=== PATIENT | male | born 1980 | race Caucasian/White ===

== ENCOUNTER 2017-04-04 06:27 | Emergency (ER) | payer OTHER ==
[~2017-04-04] VITALS: Ht 175.3 cm; Wt 97.0 kg
[2017-04-04 06:30] VITALS: Ht 175.3 cm; Wt 97.0 kg
[2017-04-04] MEDS ORDERED: HYDROCODONE/APAP (5/325) TAB PO ONE (07:30)
--- NOTE | 2017-04-04 07:50 | RADRPT ---
PROCEDURE: CHEST RADIOGRAPH CLINICAL INDICATION: Dyspnea. TECHNIQUE: Single frontal view of the chest were obtained. COMPARISON: None. FINDINGS: There is no consolidation or pleural effusion. There is no pneumothorax. The cardiomediastinal stru ctures unremarkable. The visualized bony structures are unremarkable. IMPRESSION: Unremarkable single-view chest radiograph. RPTAT: HMZ .Terrance Meng MD, MD Date Time Electronically viewed and signed by .Terrance Meng MD, on 04/04/2017 07:50 .Z/
--- NOTE | 2017-04-04 07:51 | RADRPT ---
PROCEDURE: XR right shoulder. CLINICAL INDICATION: Pain. TECHNIQUE: AP Internal and external rotation views of the right shoulder were performed. COMPARISON: None. FINDINGS: There is normal osseous mineralization and alignment. No acute fracture or osseous lesion is identified. There are normal joints without evidence of arthritis or dislocation. Rounded soft tissue densities are present within the axillary region. Correlate for possible enlarge d lymph nodes. IMPRESSION: 1. No acute fracture, dislocation, or degenerative change. 2. Soft rounded soft tissue densities within the axillary region. Correlate for pathologically enla rged lymphadenopathy. RPTAT: HRSR Physician Tiara Date Time Electronically viewed and signed by Physician Tiara on 04/04/2017 07:50 RR/
[2017-04-04] MEDS ORDERED: HYDR-906 PO (08:21)
[2017-04-04] MEDS ORDERED: NAPR-260 PO (08:21)
[2017-04-04] MEDS ORDERED: BACL10TA PO (08:22)
--- NOTE | 2017-04-04 23:15 | ERD ---
ER Documentation Chief Complaint Chief Complaint rt shoulder pain x 5 days , no trauma HPI Patient is a 36-year-old male with no past medical history presents to the ED with concerns of right shoulder and scapula pain 5 days. Patient denies any trauma or falls. Patient denies any heavy lifting. Patient reports trying heat pads, ointments, ibuprofen with no alleviation of symptoms. Patient denies any fevers or chills. Patient denies any chest pain, shortness breath, abdominal pain, nausea, vomiting, left upper extremity pain, diaphoresis or LOC. Patient denies any back pain or neck pain. Patient states that his pain is worse when taking a deep inspiration or coughing. No recent travel. No sick contacts Patient works at [employer]. Patient does admit to having flulike symptoms approximately 2 having symptoms have improved significantly. ROS All systems reviewed and are negative except as per history of present illness. Medications Home Meds Active Scripts Baclofen* (Baclofen*) 10 Mg Tablet, 10 MG PO Q8, #15 TAB Prov:RITA LEVI PA-C 04/04/17 Hydrocodone/Acetaminophen ([place] 5-325 Tablet) 1 Each Tablet, 1 TAB PO Q6H Y for PAIN, #7 TAB Prov:RITA LEVI PA-C 04/04/17 Naproxen* (Naprosyn*) 500 Mg Tablet, 500 MG PO BID Y for PAIN AND/OR INFLAMMATION, #30 TAB Prov:RITA LEVI PA-C 04/04/17 Allergies Allergies: Coded Allergies: No Known Drug Allergies (Verified Allergy, Unknown, 04/04/17) PMhx/Soc Medical and Surgical Hx: pt denies Medical Hx, pt denies Surgical Hx Physical Exam Vitals Vital Signs Date Time Temp Pulse Resp B/P Pulse Ox O2 Delivery O2 Flow Rate FiO2 04/04/17 06:30 97.8 68 18 126/82 98 Physical Exam GENERAL: Well-developed, well-nourished male. Appears in no acute distress. Speaking in full sentences HEAD: Normocephalic, atraumatic. EYES: Pupils are equally reactive bilaterally. EOMs grossly intact. No conjunctival erythema. ENT: Moist mucous membranes. No uvula deviation. No kissing tonsils. NECK: Supple. No meningismus. Normal range of motion of the neck. Tender to palpation of the right trapezius muscle, pain ranges from the upper neck region down to the right scapula. Pain is reproducible with palpation. Muscle tightness and spasms noted. LUNG: Clear to auscultation bilaterally. No rhonchi, wheezing, rales or coarse breath sounds. HEART: Regular rate and rhythm. No murmurs, rubs or gallops. BACK: No midline tenderness. EXTREMITIES: Equal pulses bilaterally. No peripheral clubbing, cyanosis or edema. No unilateral leg swelling. NEUROLOGIC: Alert and oriented. Moving all four extremities without any difficulty. Normal speech. Steady gait. SKIN: Normal color. Warm and dry. No rashes or lesions. Upon receiving chest x-ray results, repeat exam was performed. Patient had no tenderness in the right axilla. Less than 1 cm circular, round, movable lymph nodes were noted. No erythema, no warmth, no swelling. Results 24 hrs Current Medications Medications (Trade) Dose Ordered Sig/Leopoldo Route PRN Reason Start Time Stop Time Status Last Admin Dose Admin Acetaminophen/ Hydrocodone Bitart ([place] (5/325)) 1 tab ONCE ONCE PO 04/04/17 07:30 04/04/17 07:31 DC 04/04/17 07:19 Procedures/MDM ED COURSE: The patient was stable throughout ED course. I kept the patient and/or family informed of laboratory and diagnostic imaging results throughout the ED course. DIAGNOSTIC IMAGING: Read by radiologist. DIAGNOSTIC IMAGING REPORT Patient: OPAL NORRIS : 1980 Age: 36 Sex: M MR #: [id number] DOS: 04/04/17 0000 Ordering MD: RITA LEIV PA-C Location: [facility] Room/Bed: PROCEDURE: CHEST RADIOGRAPH CLINICAL INDICATION: Dyspnea. TECHNIQUE: Single frontal view of the chest were obtained. COMPARISON: None. FINDINGS: There is no consolidation or pleural effusion. There is no pneumothorax. The cardiomediastinal structures unremarkable. The visualized bony structures are unremarkable. IMPRESSION: Unremarkable single-view chest radiograph. RPTAT: HMZ .Terrance Meng MD, Date Time Electronically viewed and signed by .Terrance Meng MD, on 04/04/2017 07:50 .Z/ CC: RITA LEVI PA-C DIAGNOSTIC IMAGING REPORT Patient: OPAL NORRIS : 1980 Age: 36 Sex: M MR #: [id number] DOS: 04/04/17 0714 Ordering MD: RITA LEVI PA-C Location: [facility] Room/Bed: PROCEDURE: XR right shoulder. CLINICAL INDICATION: Pain. TECHNIQUE: AP Internal and external rotation views of the right shoulder were performed. COMPARISON: None. FINDINGS: There is normal osseous mineralization and alignment. No acute fracture or osseous lesion is identified. There are normal joints without evidence of arthritis or dislocation. Rounded soft tissue densities are present within the axillary region. Correlate for possible enlarged lymph nodes. IMPRESSION: 1. No acute fracture, dislocation, or degenerative change. 2. Soft rounded soft tissue densities within the axillary region. Correlate for pathologically enlarged lymphadenopathy. RPTAT: HRSR Physician Tiara Date Time Electronically viewed and signed by Physician Tiara on 04/04/2017 07 :50 RR/ MEDICATIONS GIVEN: [place] Patient tolerated medication well with no adverse reactions. Patient reported improvement in pain. MEDICAL DECISION MAKING: This is a 36-year-old male who presents ED for concerns of right posterior shoulder pain times several days. Patient denies trauma or falls. Patient denies any heavy lifting. Patient denies any fever or chills. Patient did admit to the pain being worse with deep inspiration or when coughing. Vital signs were reviewed. Patient is afebrile. Patient is not hypoxic. Right shoulder series showed 1. No acute fracture, dislocation, or degenerative change. 2. Soft rounded soft tissue densities within the axillary region. Correlate for pathologically enlarged lymphadenopathy. Patient's axillary lymph nodes pain enlarged secondary to recently having a cold. Xhest x-ray was unremarkable. I did explain the patient's imaging studies with him and his . Patient was also reexamined and no erythema, swelling, redness or pain was elicited when palpating the patient's right axilla. Patient was advised that he should continue monitor his symptoms closely. Patient was advised to follow-up with his primary care physician for further management and monitoring of his lymph nodes in his right axilla. Patient was advised that he may need a biopsy if his lymphadenopathy persists. Patient was given a copy of all imaging studies obtained today. Patient was advised to take today's imaging studies with his primary care physician. Patient agrees to follow with primary care physician for further management of his enlarged lymph node findings. At this time, the patient's presentation is most consistent with musculoskeletal pain and lymphadenopathy of the right axilla. Low suspicion for fracture, dislocation , impingement syndrome, biceps tendinitis, gout, septic joint, OA, absces unable to rule out any ligament or tendon injuries at this time. Patient may need to follow-up with an account installation specialist or obtain an MRI and an outpatient basis.s. PRESCRIPTION: [place], baclofen, naproxen Patient was advised to avoid taking the baclofen and [place] at the same time. Patient was advised to avoid taking his medications and driving or operating any operating any machinery. DISCHARGE: At this time, patient is stable for discharge and outpatient management. I have instructed the patient to follow-up with his/her primary care physician in 1-2 days. I have discussed with the patient the possibility of needing to see a specialist for further workup and imaging studies if symptoms persist. I have instructed the patient to promptly return to the ER for any new or worsening symptoms including increased pain, fever, nausea, vomiting, weakness or LOC. The patient and/or family expressed understanding of and agreement with this plan. All questions were answered. Home care instructions were provided. Disclaimer: Inadvertent spelling and grammatical errors are likely due to EHR/ dictation software use and do not reflect on the overall quality of patient care. Also, please note that the electronic time recorded on this note does not necessarily reflect the actual time of the patient encounter. Departure Diagnosis: Primary Impression: Musculoskeletal pain of right upper extremity Additional Impression: Lymphadenopathy, axillary Condition: Stable Patient Instructions: Shoulder Pain (Uncertain Cause) Referrals: [facility] YOU HAVE RECEIVED A MEDICAL SCREENING EXAM AND THE RESULTS INDICATE THAT YOU DO NOT HAVE A CONDITION THAT REQUIRES URGENT TREATMENT IN THE EMERGENCY DEPARTMENT. FURTHER EVALUATION AND TREATMENT OF YOUR CONDITION CAN WAIT UNTIL YOU ARE SEEN IN YOUR DOCTORS OFFICE WITHIN THE NEXT 1-2 DAYS. IT IS YOUR RESPONSIBILITY TO MAKE AN APPOINTMENT FOR FOLOW-UP CARE. IF YOU HAVE A PRIMARY DOCTOR --you should call your primary doctor and schedule an appointment IF YOU DO NOT HAVE A PRIMARY DOCTOR YOU CAN CALL OUR PHYSICIAN REFERRAL HOTLINE AT IF YOU CAN NOT AFFORD TO SEE A PHYSICIAN YOU CAN CHOSE FROM THE FOLLOWING [facility] [address] [facility] [address] [facility] [address] [facility] [facility] [address] [facility] [facility] [address] [facility]. [facility] [address] [facility]. [facility] [address] [facility]. [facility] YOU HAVE RECEIVED A MEDICAL SCREENING EXAM AND THE RESULTS INDICATE THAT YOU DO NOT HAVE A CONDITION THAT REQUIRES URGENT TREATMENT IN THE EMERGENCY DEPARTMENT. FURTHER EVALUATION AND TREATMENT OF YOUR CONDITION CAN WAIT UNTIL YOU ARE SEEN IN YOUR DOCTORS OFFICE WITHIN THE NEXT 1-2 DAYS. IT IS YOUR RESPONSIBILITY TO MAKE AN APPOINTMENT FOR FOLOW-UP CARE. IF YOU HAVE A PRIMARY DOCTOR --you should call your primary doctor and schedule and appointment IF YOU DO NOT HAVE A PRIMARY DOCTOR YOU CAN CALL OUR PHYSICIAN REFERRAL HOTLINE AT . IF YOU CAN NOT AFFORD TO SEE A PHYSICIAN YOU CAN CHOSE FROM THE FOLLOWING [facility]: [facility] [address] [place] [address] [facility] [address] [place] [address] [facility] + [facility] [address] [place] [address] [facility] Hours: Mon-Fri 9:00 AM - 5:00 PM Additional Instructions: Follow-up with your primary care physician for further management of your enlarged lymph nodes. Return for any new or worsening symptoms. Call your primary care doctor TOMORROW for an appointment during the next 1-2 days.See the doctor sooner or return here if your condition worsens before your appointment time. RITA LEVI PA-C Apr 04, 2017 23:13
== END 2017-04-04 08:31 | disposition home or self-care (01) ==
LOC: FTE 06:27
DX: M79.601 Pain in right arm (principal); R59.0 Localized enlarged lymph nodes
CPT/HCPCS: 71010; 73030; Z7502; Z7610